=== PATIENT | male | born 1990 | race Caucasian/White ===

== ENCOUNTER 2018-08-18 14:41 | Emergency (ER) | payer OTHER, SELFPAY ==
[2018-08-18 14:42] VITALS: BP 131/81; PULSE 63; RESP 15; TEMP 36.7; O2SAT 98; BMI 29.4
--- NOTE | 2018-08-18 15:07 | ED.DEP ---
ED Disposition - Plan for ED Patient: Chief Complaint: Back Instructions: ED Neck Back Pain General Prescriptions: Naproxen [Naprosyn] 500 mg PO BID PRN #20 tablet Cyclobenzaprine [Flexeril] 10 mg PO TID PRN #20 tablet PRN Reason: Muscle Spasm Referrals: Benjie Acharya DO [STAFF PHYSICIAN] -
--- NOTE | 2018-08-18 15:11 | ED.VISSUMM ---
- ER Visit Summary Date of Service: 08/18/18 Chief Complaint: Back pain History of Present Illness: The patient is a 28 M presenting with back pain. He states last night he bent over and twisted to pet his dog. He started having pain in his right lower back. He states that it worsened this morning. He tried ibuprofen at home. He denies numbness or weakness. Denies bowel or bladder incontinence. Denies abdominal pain, nausea, vomiting. Denies urinary complaints. Denies fever. Denies other complaints. Physical Examination: Vitals are stable. Patient is afebrile. Alert no acute distress. HEENT exam is unremarkable. Neck is supple. Lungs are clear and equal bilaterally. Heart is regular rate and rhythm. Abdomen is soft nontender nondistended. No guarding or rebound Back right paraspinal lumbar muscle tenderness. No midline tenderness. Extremities are unremarkable. Skin is warm and dry. No rash No focal neurologic deficit. Normal strength and sensation. Remainder of exam is unremarkable. Emergency Department Course and Treatment: Patient was given Toradol, Norflex IM. He is given prescription for Naprosyn and Flexeril. 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 Advised return to ED for worsening complaints. Disposition: Discharge home Impression: Lumbar strain This note was generated with [employer] dictation software. It may contain incorrect words, spelling, and punctuation that were not noted in review of the chart prior to signing ED Disposition - Plan for ED Patient: Chief Complaint: Back Instructions: ED Neck Back Pain General Prescriptions: Naproxen [Naprosyn] 500 mg PO BID PRN #20 tablet Cyclobenzaprine [Flexeril] 10 mg PO TID PRN #20 tablet PRN Reason: Muscle Spasm Referrals: Benjie Acharya DO [STAFF PHYSICIAN] -
--- NOTE | 2018-08-18 15:14 | ED.DCSUM_ITS ---
- ER Visit Summary Date of Service: 08/18/18 Chief Complaint: Back pain History of Present Illness: The patient is a 28 M presenting with back pain. He states last night he bent over and twisted to pet his dog. He started having pain in his right lower back. He states that it worsened this morning. He t ried ibuprofen at home. He denies numbness or weakness. Denies bowel or bladder incontinence. Denies abdominal pain, nausea, vomiting. Denies urinary complaints. Denies fever. Denies other complaints. Physical Examination: Vitals are stable. Patient is afebrile. Alert no acute distress. HEENT exam is unremarkable. Neck is supple. Lungs are clear and equal bilaterally. Heart is regular rate and rhythm. Abdomen is soft nontender nondistended. No guarding or rebound Back right paraspinal lumbar muscle tenderness. No midline tenderness. Extremities are unremarkable. Skin is warm and dry. No rash No focal neurologic deficit. Normal strength and sensation. Remainder of exam is unremarkable. Emergency Department Course and Treatment: Patient was given Toradol, Norflex IM. He is given prescription for Naprosyn and Flexeril. 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 Advised return to ED for w orsening complaints. Disposition: Discharge home Impression: Lumbar strain This note was generated with [employer] dictation software. It may contain incorrect words, spelling, and punctuation that were not noted in review of the chart prior to signing ED Disposition - Plan for ED Patient: Chief Complaint: Back Instructions: ED Neck Back Pain General Prescriptions: Naproxen [Naprosyn] 500 mg PO BID PRN #20 tablet Cyclobenzaprine [Flexeril] 10 mg PO TID PRN #20 tablet PRN Reason: Muscle Spasm Referrals: Benjie Acharya DO [STAFF PHYSICIAN] -
[2018-08-18] MEDS: Ketorolac 60 MG/2 ML Vial IM (15:18)
[2018-08-18] MEDS: Orphenadrine 60 MG/2 ML Ampul IM (15:18)
[2018-08-18 15:41] VITALS: BP 121/77; RESP 18
== END 2018-08-18 15:41 | disposition home or self-care (01) ==
PROVIDERS: Emergency Provider Emergency Medicine
DX: S39.012A Strain of muscle, fascia and tendon of lower back, initial encounter (principal); Z72.0 Tobacco use; X50.1XXA Overexertion from prolonged static or awkward postures, initial encounter; Y93.89 Activity, other specified; Y92.009 Unspecified place in unspecified non-institutional (private) residence as the place of occurrence of the external cause; Y99.8 Other external cause status
CPT/HCPCS: 96372; 99284

== ENCOUNTER 2019-01-22 03:20 | Emergency (ER) | payer OTHER, SELFPAY ==
[2019-01-22 03:22] VITALS: BP 133/80; PULSE 68; RESP 14; TEMP 36.7; O2SAT 98; BMI 27.1
--- NOTE | 2019-01-22 04:06 | ED.VISSUMM ---
- ER Visit Summary Date of Service: 01/22/19 Chief Complaint: Left shoulder pain History of Present Illness: The patient is a 28 M who presents with left shoulder pain. He woke with this about 6 hours ago. While at work he was pushing on a di and his pain worsened. He does not recall any fall injury or trauma. He denies any chest pain or shortness of breath. His pain is worsened with certain movements. Physical Examination: Afebrile vitals unremarkable Heart regular rate and rhythm Lungs clear Patient has active full range of motion of the left shoulder without pain he does have some left paraspinal thoracic tenderness which is worsened with rotation of the torso to the right or reaching his left arm across his chest Test Results: Not indicated Emergency Department Course and Treatment: Patient's presentation is consistent with thoracic strain. He was given Flexeril here as well as a prescription for the same. He was discharged. Treatment Plan: [] Disposition: Discharge Impression: Thoracic strain This note was generated with [employer] dictation software. It may contain incorrect words, spelling, and punctuation that were not noted in review of the chart prior to signing ED Disposition - Plan for ED Patient: Referrals: Care Physician,No Primary [Primary Care Provider] -
--- NOTE | 2019-01-22 04:07 | ED.DEP ---
ED Disposition - Plan for ED Patient: Instructions: ED Strain Chest Wall Prescriptions: Cyclobenzaprine [Flexeril] 10 mg PO TID PRN #20 tab PRN Reason: Muscle Spasm Referrals: Care Physician,No Primary [Primary Care Provider] -
[2019-01-22 04:14] VITALS: RESP 16
== END 2019-01-22 04:14 | disposition home or self-care (01) ==
PROVIDERS: Emergency Provider Emergency Medicine
DX: S29.012A Strain of muscle and tendon of back wall of thorax, initial encounter (principal); X58.XXXA Exposure to other specified factors, initial encounter; Y93.9 Activity, unspecified; Y92.9 Unspecified place or not applicable; Z72.0 Tobacco use
CPT/HCPCS: 99283